=== PATIENT | female | born 1965 | race Caucasian/White ===

== ENCOUNTER 2021-10-20 13:34 | Emergency (ER) | payer MEDICAID ==
[~2021-10-20] VITALS: Ht 170.2 cm; Wt 72.6 kg
[2021-10-20] MEDS ORDERED: ONDANSETRON 4 MG TAB.RAPDIS SL ONE (15:00)
[2021-10-20] MEDS ORDERED: ACETAMINOPHEN ES 500 MG TABLET PO ONE (15:00)
[2021-10-20] MEDS ORDERED: CYCLOBENZAPRINE 10 MG TABLET PO ONE (15:00)
[2021-10-20] MEDS ORDERED: ACETAMINOPHEN ES 500 MG TABLET ONE (15:24)
[2021-10-20] MEDS ORDERED: ONDANSETRON 4 MG TAB.RAPDIS ONE (15:25)
[2021-10-20] MEDS ORDERED: CYCLOBENZAPRINE 10 MG TABLET ONE (15:25)
[2021-10-20] MEDS ORDERED: IBUP-1957 PO (16:39)
[2021-10-20] MEDS ORDERED: CYCL10TA9 PO (16:39)
--- NOTE | 2021-10-20 17:00 | NUR ---
Pt updated with plan of care concurs. VSS NO acute changes NO obvious distress
[2021-10-20 17:27] VITALS: BP 110/80
--- NOTE | 2021-10-20 17:28 | NUR ---
Patient discharged to home in stable condition. Written and verbal after care instructions given. Patient verbalizes understanding of instruction.
== END 2021-10-20 17:27 | disposition home or self-care (01) ==
LOC: ER 13:38
DX: R51.9 Headache, unspecified (principal); M54.2 Cervicalgia; M54.6 Pain in thoracic spine; Z79.899 Other long term (current) drug therapy
CPT/HCPCS: 70450; 72125; 72128; 99284; Q0162

== ENCOUNTER 2023-01-10 18:18 | Emergency (ER) | payer MEDICAID ==
[~2023-01-10] VITALS: Ht 167.6 cm; Wt 79.4 kg
[~2023-01-10 18:18] MED LIST: CYCL10TA9 PO; IBUP-1957 PO
[2023-01-10 21:38] LABS: BASOPHILS % (AUTO) 0.4 % (0.0-2.0); EOSINOPHILS % (AUTO) 0.5 % (0.0-6.0); HEMATOCRIT 39 % (33-45); HEMOGLOBIN 13.6 g/dL (11.5-14.8); LYMPHOCYTES # (AUTO) 2.4 K/uL (0.8-4.8); LYMPHOCYTES % (AUTO) 32.4 % (20.0-44.0); MEAN CORPUSCULAR HEMOGLOBIN 31 PG (26.0-33.0); MEAN CORPUSCULAR HGB CONC 35 g/dl (31.0-36.0); MEAN CORPUSCULAR VOLUME 91 fL (82-100); MONOCYTES # (AUTO) 0.5 K/uL (0.1-1.30); MONOCYTES % (AUTO) 6.9 % (2.0-12.0); NEUTROPHILS # (AUTO) 4.5 K/uL (1.8-8.9); NEUTROPHILS % (AUTO) 59.8 % (43.0-81.0); PLATELET COUNT (AUTO) 236 K/uL (150-450); RED BLOOD CELL COUNT(AUTO) 4.32 MIL/uL (4.0-5.2); RED CELL DISTRIBUTION WIDTH 12.9 % (11.5-15.0); WHITE BLOOD COUNT (AUTO) 7.6 K/uL (4.3-11.0)
[2023-01-10 21:45] LABS: CALCIUM, SERUM 8.9 mg/dL (8.5-10.1); CARBON DIOXIDE 28 mmol/L (21-32); CHLORIDE 104 mmol/L (98-107); CREATININE 0.6 mg/dL (0.6-1.3); GLUCOSE 129 mg/dL (74-106); POTASSIUM 3.6 mmol/L (3.5-5.1); SODIUM SERUM 140 mmol/L (136-145); UREA NITROGEN, BLOOD 14 mg/dL (7-18)
[2023-01-10] MEDS ORDERED: CYCL10TA9 PO (23:10)
[2023-01-10] MEDS ORDERED: IBUP-1955 PO (23:10)
[2023-01-10 23:19] VITALS: BP 120/69; TEMP 99.5; O2SAT 98
[2023-01-10] MEDS ORDERED: IBUPROFEN 600 MG TABLET PO ONE (23:30)
== END 2023-01-10 23:17 | disposition home or self-care (01) ==
LOC: ER 18:25
DX: M54.12 Radiculopathy, cervical region (principal); F31.9 Bipolar disorder, unspecified
CPT/HCPCS: 36415; 71045-TC; 80048-TC; 83880; 84484-TC; 85025-TC